=== PATIENT | female | born 1940 | race African-American/Black ===

== ENCOUNTER 2018-09-15 17:01 | Emergency (ER) | payer MEDICARE, BC ==
[~2018-09-15] VITALS: Ht 157.5 cm; Wt 62.0 kg
[~2018-09-15 17:01] MED LIST: ASPIRIN PO; DIOVAN; FERR-63 PO; GLUCOSAMINE PO; INSU100C6 SQ; JANUMET; LANTUS PO; NOVOLOG SQ; OMEP20CA10 PO; PROLIA; SENN8.6C5 PO; SUCR1TAB PO; [UNRECOGNIZED DRUG - OTHER] PO
[2018-09-15] MEDS ORDERED: MORPHINE SULFATE 4 MG/ML CPJ (NOT FOR IM USE) IV STA (17:38)
[2018-09-15] MEDS ORDERED: SODIUM CHLORIDE 0.9% 1,000 ML IV ONE (17:38)
[2018-09-15] MEDS ORDERED: ONDANSETRON HCL 4MG/2ML INJ IV STA (17:38)
[2018-09-15 18:38] LABS: BASOPHILS % 0.3 % (0.0-2.0); EOSINOPHILS % 1.4 % (0.0-5.0); HEMOGLOBIN. 14.3 g/dL (12.0-16.0); LYMPHOCYTES % 14.4 % (20.0-50.0); MEAN CORPUSCULAR HEMOGLOBIN 29.8 pg (28.0-32.0); MEAN CORPUSCULAR VOLUME 89.8 fL (81.0-99.0); MEAN PLATELET VOLUME 7.9 fl (7.4-10.4); MONOCYTES % 4.2 % (2.0-8.0); NEUTROPHILS % 79.7 % (40.0-76.0); PLATELET 189 x1000/uL (130-400); RED BLOOD CELL COUNT 4.79 mill/uL (4.2-5.4); RED CELL DISTRIBUTION WIDTH 12.8 % (11.6-14.6)
[2018-09-15 18:42] LABS: CHLORIDE 106 mEq/L (98-107)
[2018-09-15 18:43] LABS: INR 1.1; PARTIAL THROMBOPLASTIN TIME 26.7 sec (23.4-31.0); PROTHROMBIN TIME 11.1 sec (9.1-11.1)
[2018-09-15 21:02] VITALS: BP 136/65
== END 2018-09-15 21:18 | disposition short-term general hospital (02) ==
LOC: ER 17:01
DX: S22.20XA Unspecified fracture of sternum, initial encounter for closed fracture (principal); S22.039A Unspecified fracture of third thoracic vertebra, initial encounter for closed fracture; S22.089A Unspecified fracture of T11-T12 vertebra, initial encounter for closed fracture; S89.92XA Unspecified injury of left lower leg, initial encounter; I10 Essential (primary) hypertension; M54.9 Dorsalgia, unspecified; E11.9 Type 2 diabetes mellitus without complications; W01.0XXA Fall on same level from slipping, tripping and stumbling without subsequent striking against object, initial encounter; Y93.9 Activity, unspecified; Y92.9 Unspecified place or not applicable; Z79.4 Long term (current) use of insulin; Z88.0 Allergy status to penicillin; Z88.1 Allergy status to other antibiotic agents; Z90.710 Acquired absence of both cervix and uterus; Z79.82 Long term (current) use of aspirin
CPT/HCPCS: 36415; 70450; 71045; 71250; 72100; 72170; 73590; 80053; 83880; 84484; 85025; 85610; 85730; 93005; 96374; 96375; 99291; J2270; J2405; J7030